=== PATIENT | female | born 1965 | race Caucasian/White ===

== ENCOUNTER 2023-09-15 09:26 | Emergency (ER) | payer MEDICARE, SELFPAY ==
--- NOTE | ~2023-09-15 | XR_ITS ---
EXAMINATION: XR RIBS, RIGHT CLINICAL INFORMATION: Right rib pain. COMPARISON: Chest radiograph dated 06/28/2017. TECHNIQUE: PA views of the chest as well as 3 views of the right ribs. FINDINGS: Minimal bibasilar atelectasis. No large, confluent airspace consolidation. No pleural effusion or pneumothorax. Stable cardiomediastinal silhouette. No displaced fracture. No concerning lytic or blastic osseous lesion. No abnormal soft tissue calcification. XR/XR ribs RT min 3V w CXR1V IMPRESSION: 1. No displaced fracture. 2. Minimal bibasilar atelectasis.
--- NOTE | ~2023-09-15 | XR_ITS ---
EXAMINATION: XR SHOULDER, RIGHT CLINICAL INFORMATION: Right shoulder pain. COMPARISON: None available. TECHNIQUE: AP external rotation, Grashey, scapular Y, and axillary views of the right shoulder. FINDINGS: The bones and soft tissues are normal. No fracture. Glenohumeral and acromioclavicular alignment is anatomic with normal joint space. No abnormal soft tissue calcifications. XR/XR shoulder RT min 2V IMPRESSION: Unremarkable examination.
--- NOTE | ~2023-09-15 | XR_ITS ---
EXAMINATION: XR CERVICAL SPINE CLINICAL INFORMATION: Neck pain radiating to the right shoulder. COMPARISON: None available. TECHNIQUE: AP, lateral, and open-mouth views of the cervical spine were obtained. FINDINGS: Normal vertebral body alignment. The cervical lordosis is maintained. Normal atlantoaxial alignment. No acute fracture or subluxation. No loss of vertebral body height. Loss of intervertebral disc height with anterior endplate osteophytes at C6-C7. Mild bilateral facet arthropathy at C3-C4. No concerning lytic or blastic osseous lesion. Unremarkable prevertebral soft tissues. No abnormal soft tissue calcification. XR/XR cervical spine 3V IMPRESSION: Moderate degenerative disc disease at C6-C7. Mild bilateral facet arthropathy at C3-C4.
[2023-09-15 09:47] VITALS: BP 143/94; PULSE 81; RESP 20; TEMP 36.7; O2SAT 94; BMI 32.3
--- NOTE | 2023-09-15 10:38 | ED.GENADULT ---
HPI - General Adult General Chief complaint: Neck Pain/Injury Stated complaint: r shoulder pain diff breathing Time Seen by Provider: 09/15/23 10:36 Source: patient Mode of arrival: ambulatory Limitations: no limitations History of Present Illness HPI narrative: 58 year old female with pmhx significant for presents to the ED today with a complaint of right-sided neck pain with radiation into the right shoulder x4 days. States her symptoms began 4 days ago with a pinched nerve in her right shoulder and associated right sided neck pain 4 days ago. The following day she woke up with pain along her right ribs and bra line. This pain is exacerbated with movement and going from a lying to seated position. Denies recent travel or long car rides, trauma/fall. Denies fever, chills, headache, dizziness, chest pain, shortness of breath, wheezing, nausea/vomiting, abdominal pain, lower extremity pain/swelling. No history of cardiac disease. Related Data Previous Rx's Medication Instructions Recorded lidocaine 5 % topical patch 1 patch topical DAILY PRN pain 09/15/23 (Lidoderm) (scale score 4-6) 15 days #15 ea Allergies Allergy/AdvReac Type Severity Reaction Status Date / Time No Known Allergies Allergy Unverified 06/19/20 19:17 Review of Systems Review of Systems: Constitutional: No fever, chills, fatigue, night sweats, weight changes ENT/Mouth: No ear pain, hearing loss, nasal congestion, sinus pain, rhinorrhea, sore throat Eyes: No eye pain, swelling, redness, vision changes, discharge Cardio: No chest pain, palpitations, BAHENA, orthopnea, peripheral edema Pulm: No SOB, cough, sputum, wheezing, dyspnea, hemoptysis GI: No nausea, vomiting, hematemesis, abdominal pain, diarrhea, constipation, hematochezia, melena : No irregular bleeding, dysuria, frequency, urgency, hesitancy, hematuria, flank pain, urinary flow changes, urinary incontinence or retention MSK: No back pain,+ neck pain, +shoulder pain, No joint pain, myalgias Skin: No lesions, rashes Neuro: No weakness, numbness, paresthesias, LOC, dizziness, headache All other systems reviewed and are negative. [facility] Past Medical History Attestation statement: The following information was validated with the patient. Source: old records reviewed and nursing notes reviewed Physical Exam ED Vital Signs: Vital Signs - 24 hr 09/15/23 09:47 09/15/23 11:14 Temperature 98.0 F Pulse Rate 81 71 Respiratory Rate 20 15 Blood Pressure 143/94 H Pulse Oximetry 94 93 Oxygen Delivery Method Room Air Room Air BMI result Body Mass Index 32.3 Vital signs stable Const General: cooperative, comfortable, no acute distress, alert and awake Orientation/consciousness: patient oriented x3 Limitations: no limitations HENMT Head: Yes normal to inspection Ears: hearing grossly normal bilaterally Eyes General: appearance normal, both eyes and all related structures Conjunctivae: conjunctivae normal Sclerae: sclerae normal Pupils: Equal, round and reactive pupils present Neck Neck: Yes normal visual inspection, Yes full ROM, Yes no lymphadenopathy and Yes no meningeal signs Chest Other: + anterior, lateral and posterior chest nontender to palpation. No step-off deformity. Chest palpation & inspection: normal inspection of the chest, normal palpation of entire chest wall, no crepitus and no tenderness Resp Effort & Inspection: normal respiratory effort, able to speak in complete sentences and symmetric chest movement Auscultation: clear to auscultation bilaterally Cardio Rate: regular rate Rhythm: regular rhythm Heart sounds: S1 normal heart sound present and S2 normal heart sound present Peripheral pulses: Peripheral pulses 2+ throughout GI Inspection: Yes normal to inspection and No abdominal wall ecchymosis Palpation (GI): Soft to palpation, nontender and no guarding General: Yes no CVA tenderness Back/Spine/Pelvis Other: No midline spinous tenderness. No paraspinal muscle tenderness. No step off deformity. Back: no CVA tenderness Skin General skin exam: no rashes or lesions noted Neuro Other: Strength 5/5 intact throughout.? Sensation intact to light touch.? Neurovascular intact distally.? General: patient oriented x3, gait normal, moves all extremities and no meningeal signs Cranial nerves: Yes CN's II-XII intact bilaterally and Yes Equal, round and reactive pupils present Extrem Other: + no overlying skin changes noted to right upper extremity. No visible or palpable deformity along the right shoulder, right humerus or right elbow. Full ROM intact to right shoulder, elbow. 2+ radial and ulnar pulses to right UE. General: Yes normal to inspection and Yes full ROM Course Course Course Narrative: 1300-- CBC without leukocytosis or anemia. Chemistry without acute electrolyte abnormality requiring intervention. Troponin undetectable. EKG showing normal sinus rhythm at a rate of 68 ppm, normal QT and QTC, no acute ischemic changes or ST elevations. X-ray right shoulder unremarkable. X-ray right ribs unremarkable. X-ray cervical spine showing degenerative changes at C6-C7, no acute fracture or subluxation. >> patient likely has a muscle strain. I informed her of her results and she states that she may have slept wrong. The area feels sore to her. Pain has improved with lidocaine patch. I feel comfortable sending patient home with lidocaine patches and pain control with Tylenol/ibuprofen. Informed her to follow up with her PCP if symptoms persist. Patient has remained stable throughout ED visit today. Discussed strict return precautions. All questions answered at this time. Patient is agreeable with disposition and stable for discharge. Medications Administered Discontinued Medications Generic Name Dose Route Start Last Admin Trade Name Martínq PRN Reason Stop Dose Admin Acetaminophen 975 mg 09/15/23 10:52 09/15/23 11:15 Acetaminophen 325 Mg Tablet PO 09/15/23 10:53 975 mg ONCE ONE Administration Lidocaine 1 patch 09/15/23 10:52 09/15/23 11:15 Lidocaine 4 % Patch Adh..Patch TRANSDERMA 09/15/23 10:53 1 patch ONCE ONE Administration Protocol Medical Decision Making Medical Decision Making [facility] Narrative: 58 year old female with pmhx significant for presents to the ED today with a complaint of right-sided neck pain with radiation into the right shoulder x4 days. Vital signs stable. Patient nontoxic appearing and in no acute distress. anterior, lateral and posterior chest nontender to palpation. No step-off deformity. no overlying skin changes noted to right upper extremity. No visible or palpable deformity along the right shoulder, right humerus or right elbow. Full ROM intact to right shoulder, elbow. 2+ radial and ulnar pulses to right UE. Clinical concern for MSK sprain/strain, fracture, cervical radiculopathy, electrolyte derangement. Unlikely arrhythmia, ACS, PE, DVT, dissection, flail chest. Plan for imaging, labs, troponin, EKG, pain control. Differential Diagnosis Differential Diagnoses: The differential diagnosis associated with the presentation includes as above. Admission/Observation not indicated. Lab Data [facility] Lab Attestation statement: I reviewed the patient's lab results. as above. 09/15/23 12:03 09/15/23 12:03 Labs: Lab Results 09/15/23 Range/Units 12:03 WBC 7.9 (4.8-10.8) X10*3/uL RBC 4.81 (4.20-5.50) X10*6/uL Hgb 14.6 (12.0-16.0) g/dl Hct 43.9 (37.0-47.0) % MCV 91.3 (80.0-98.0) fL MCH 30.4 (27.0-33.0) pg MCHC 33.3 (31.0-35.0) g/dl RDW 12.8 (11.0-16.0) % Plt Count 268 (160-400) X10*3/uL MPV 9.3 L (9.4-12.3) fL Immature Gran % (Auto) 0.3 (0.0-0.4) % Neut % (Auto) 69.8 (45-73) % Lymph % (Auto) 18.8 L (20-40) % [place] % (Auto) 10.0 (2-11) % Eos % (Auto) 0.8 (0-4) % Baso % (Auto) 0.3 (0-2) % Lymph # (Auto) 1.5 (1.2-4.9) X10*3/uL [place] # (Auto) 0.8 (0.1-1.2) X10*3/uL Eos # (Auto) 0.1 (0.0-0.4) X10*3/uL Baso # (Auto) 0.0 (0.0-0.2) X10*3/uL Abs Immat Gran (auto) 0.02 (0.00-0.03) X10*3/uL Absolute Neuts (auto) 5.5 (2.0-8.3) x10*3/uL Absolute Nucleated RBC 0.000 (0.0-0.012) X10*3/uL Nucleated RBC % (auto) 0.0 (0.0-0.2) /100WBC PT 13.5 H (11.1-13.3) SEC INR 1.1 (0.9-1.1) Sodium 140 (135-145) mmol/L Potassium 3.9 (3.3-5.1) mmol/L Chloride 105 (96-108) mmol/L Carbon Dioxide 29 (22-29) mmol/L Anion Gap 10 L (12-20) BUN 10 (9-16) mg/dL Creatinine 0.82 (0.5-1.4) mg/dL Estim Creat Clear Calc 82.7 Estimated GFR > 60 Random Glucose 102 (60-115) mg/dL Calcium 9.3 (8.4-10.2) mg/dL Magnesium 2.4 (1.6-2.6) mg/dL Troponin I High Sens < 2.7 (<3.5-17.0) ng/L Lipase 20 (8-78) U/L Independent Interpretation I performed an independent interpretation of an: EKG and Plain X-Ray Interpretation: EKG showing normal sinus rhythm with a rate of 68 beats per minute, QT of 386, no acute ischemic changes or ST elevations. X-ray cervical spine without acute fracture or subluxation, agree with radiologist's interpretation. X-ray right humerus without acute fracture or dislocation, agree with radiologist's interpretation. X-ray ribs without acute fracture, agree with radiologist's interpretation. Radiology Impression Discussion of test interpretation with radiology: I have reviewed the radiologist's reading. Radiologist Impression: XR cervical spine 3V IMPRESSION: Moderate degenerative disc disease at C6-C7. Mild bilateral facet arthropathy at C3-C4. XR ribs RT min 3V w CXR1V IMPRESSION: 1. No displaced fracture. 2. Minimal bibasilar atelectasis. XR shoulder RT min 2V IMPRESSION: Unremarkable examination. External Record Review External record reviewed: Inpatient record Prescription Management I considered prescription management with: Pain Medication and Other Critical Care Time Critical Care Time Critical Care Time: No Discharge Plan Discharge Clinical Impression: Rib pain on right side Patient Disposition: Home, Self-Care Instructions: Musculoskeletal Pain (ED) Additional Instructions: Your labs today were normal. Your EKG was normal. The x-ray of your right shoulder, ribs and neck do not demonstrate acute fracture or pathology. Your pain is likely musculoskeletal. Avoid bending, lifting, or twisting. Use ice several times per day for 20 minutes at a time for the next 48 hours and then change to heat. Take anti-inflammatories at home such as ibuprofen for pain. You may also take Tylenol. Lidoderm patches are numbing patches. Apply to painful areas. Follow up with your primary care provider as needed If your pain worsens, if you develop new numbness, tingling, weakness, loss of bowel or bladder function call 911 or return to the ER immediately for evaluation. Prescriptions: New lidocaine [Lidoderm] 5 % adhesive patch,medicated 1 patch topical DAILY PRN (Reason: pain (scale score 4-6)) 15 Days Qty: 15 0RF Rx Instructions: leave on most painful area for up to 12 hrs Referrals: Devang Rhodes MD [Primary Care Provider] - Interventions: ED Discharge Assessment Last Done: 09/15/23 13:20 Discharge Date/Time: 09/15/23 13:21
[2023-09-15 11:14] VITALS: PULSE 71; RESP 15; O2SAT 93
[2023-09-15] MEDS: Lidocaine 4 % Patch ADH..PATCH 1 PATCH TRANSDERMA (11:15)
[2023-09-15] MEDS: Acetaminophen 325 MG TABLET 975 MG PO (11:15)
--- NOTE | 2023-09-15 11:41 | ECG_ITS ---
Test Reason : SHORT OF BREATHE Blood Pressure : / mmHG Vent. Rate : 068 BPM Atrial Rate : 068 BPM P-R Int : 148 ms QRS Dur : 086 ms QT Int : 386 ms P-R-T Axes : 046 -08 006 degrees QTc Int : 410 ms Normal sinus rhythm Minimal voltage criteria for LVH, may be normal variant ( R in aVL ) Cannot rule out Anterior infarct , age undetermined Abnormal ECG No previous ECGs available Referred By: Katie Cummings Electronically Signed By:Fidencio Casillas
[2023-09-15 12:08] LABS: MANUAL DIFF FLAG NO
[2023-09-15 12:10] LABS: Basophils Percent Auto 0.3 % (0-2); Eosinophils Absolute Auto 0.1 X10*3/uL (0.0-0.4); Eosinophils Percent Auto 0.8 % (0-4); Hematocrit 43.9 % (37.0-47.0); Hemoglobin 14.6 g/dl (12.0-16.0); Imm Gran Abs Auto 0.02 X10*3/uL (0.00-0.03); Imm Gran Pct Auto 0.3 % (0.0-0.4); Lymphocytes Absolute Auto 1.5 X10*3/uL (1.2-4.9); Lymphocytes Percent Auto 18.8 % (20-40); Mean Corpuscular HGB Conc 33.3 g/dl (31.0-35.0); Mean Corpuscular Hemoglobin 30.4 pg (27.0-33.0); Mean Corpuscular Volume 91.3 fL (80.0-98.0); Mean Platelet Volume 9.3 fL (9.4-12.3); Monocytes Absolute Auto 0.8 X10*3/uL (0.1-1.2); Neutrophils Absolute Auto 5.5 x10*3/uL (2.0-8.3); Neutrophils Percent Auto 69.8 % (45-73); Platelet Count 268 X10*3/uL (160-400); Red Blood Count 4.81 X10*6/uL (4.20-5.50); Red Cell Distribution Width 12.8 % (11.0-16.0); White Blood Count 7.9 X10*3/uL (4.8-10.8)
[2023-09-15 12:14] LABS: INTERNATIONAL NORM RATIO 1.1 (0.9-1.1); Prothrombin Time 13.5 SEC (11.1-13.3)
[2023-09-15 12:33] LABS: Anion Gap 10 (12-20); Blood Urea Nitrogen 10 mg/dL (9-16); Calcium 9.3 mg/dL (8.4-10.2); Carbon Dioxide 29 mmol/L (22-29); Chloride 105 mmol/L (96-108); Creatinine Clr Calc Pharmacy 82.7; Estimated Glomerular Filt Rate > 60; Glucose Random 102 mg/dL (60-115); Lipase 20 U/L (8-78); Magnesium 2.4 mg/dL (1.6-2.6); Potassium 3.9 mmol/L (3.3-5.1); Sodium 140 mmol/L (135-145)
[2023-09-15 12:39] LABS: Troponin-I High Sensitivity < 2.7 ng/L (<3.5-17.0)
== END 2023-09-15 13:21 | disposition home or self-care (01) ==
PROVIDERS: Physician Assistant Medical; Emergency Provider Student in an Organized Health Care Education/Training Program; PCP Internal Medicine
DX: R07.81 Pleurodynia (principal); M54.2 Cervicalgia; M25.511 Pain in right shoulder; R51.9 Headache, unspecified; R07.89 Other chest pain; Z79.899 Other long term (current) drug therapy
CPT/HCPCS: 36415; 71101; 72040; 73030; 80048; 83690; 83735; 84484; 85025; 85610; 93005; 99284; 99285

== ENCOUNTER → 2023-09-15 11:41 | Outpatient (BNV) | payer MEDICARE, SELFPAY | PROVIDERS: Emergency Provider Student in an Organized Health Care Education/Training Program; PCP Internal Medicine; Visit Provider Internal Medicine Cardiovascular Disease | DX: R94.31 Abnormal electrocardiogram [ECG] [EKG] (principal); R06.02 Shortness of breath | CPT/HCPCS: 93010 ==

== ENCOUNTER 2025-05-07 11:04 | Outpatient (AMB) | payer MEDICARE, SELFPAY ==
--- NOTE | 2025-05-07 11:05 | A.OFFVIS_ITS ---
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 She had an EMG nerve conduction study in 2017 that revealed mild peripheral neuropathy affecting sensory nerves. She has been treated symptomatically with gabapentin. She was complaining of increasing weakness and inability to climb stairs. [facility] Medical History (Updated 05/07/25 @ 11:[address] MD) Obesity Vitamin D deficiency Peripheral neuropathy Review of Systems Const Details: Constitutional:?No fever, chills, fatigue, weight loss, or night sweats. HEENT:?No headache, vision changes, hearing loss, nasal congestion, sore throat. Neurological:?No dizziness, syncope, seizures, numbness, tingling, weakness, tremors, memory loss. Psychiatric:?No anxiety, depression, mood swings, sleep disturbance, or hallucinations. Endocrine:?No heat/cold intolerance, polydipsia, polyuria, or hair/skin changes. Hematologic/Lymphatic:?No easy bruising, bleeding, or lymphadenopathy. Integumentary (Skin):?No rash, lesions, itching, or color changes. ? Physical Exam Neuro Other: Mental Status: Alert and oriented to person, place, and time. Normal attention. Normal spontaneous speech, fluency, and comprehension. No obvious issues with mood and memory. Affect is appropriate. Cranial Nerves: CN II: Visual johnston full to confrontation, visual acuity intact. CN III, IV, : Pupils equal, round, reactive to light and accommodation. Extraocular movements are normal. CN V: Facial sensation is normal. CN VII: Facial movements symmetrical. CN VIII: Hearing intact to bedside conversation is normal. CN IX, X: Palate elevates symmetrically. CN XI: Shoulder shrug and head turn symmetrical. CN XII: Tongue midline without atrophy or fasciculations. Deep tendon reflexes are trace to absent. She is able to get up and walk around with no obvious significant difficulty. Extrapyramidal: Full facial expressions and blinking. No rigidity. Movements are appropriate with no tremor or abnormality. Speech: Normal; no dysarthria or tremor. Assessment & Plan Assessment & Plan (1) Neuropathic pain: Code(s): M79.2 - Neuralgia and neuritis, unspecified Category: Medical (2) Peripheral neuropathy: Comment: NCV/EMG LE 07/04/17 Mild peripheral neuropathy affecting sensory nerves. Code(s): G62.9 - Polyneuropathy, unspecified Category: Medical Qualifiers: Peripheral neuropathy type: polyneuropathy, unspecified Qualified Code(s): G62.9 - Polyneuropathy, unspecified Plan Impression: 1. Neuropathic pain affecting feet secondary to peripheral neuropathy 2. 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 Gabapentin 400 mg 1-2 at night for symptomatic relief 2. Comfortable shoes 3. Avoid prolonged standing and walking 4. EMG/NCS for reevaluation, last study was done in 2017, as she was having more symptoms Orders: Orders NE nerve conduction velocity Today G62.9 - Polyneuropathy, unspecified NE electromyogram (EMG) Today G62.9 - Polyneuropathy, unspecified Medications: New gabapentin 400 mg PO .1-2 at bedtime 200 caps 1RF Coding Level of Care Code Est Pt Level 4 (23192) Diagnoses Neuropathic pain M79.2 Peripheral polyneuropathy G62.9 Peripheral neuropathy type: polyneuropathy, unspecified
--- OUTSIDE RECORDS SUMMARY | 2025-05-07 11:52 | XMS_ITS | Clinical Summary ---
Author Organization [place] [address] [facility] Building Address [address] [place], [place] [address], [place] [address] Phone Care Team Providers Care Rfid Specialist Name Role Phone Devang Rhodes MD Primary Care Provider [phone] [phone] Allergies No known active allergies Medications gabapentin (NEURONTIN) 400 mg capsule Take 1 Capsule by mouth at bedtime. Active meclizine (ANTIVERT) 12.5 mg tabletIndicati ons:Vertigo Take 1 tablet (12.5 mg total) by mouth 3 (three) times a day if needed for dizziness. 30 tablet 4 Active omeprazole (PriLOSEC) [address] capsule TAKE ONE CAPSULE BY MOUTH EVERY DAY 30 capsule 3 4 Active cyanocobalamin (VITAMIN B-12) 1,000 mcg tablet Take 1 tablet (1,000 mcg total) by mouth 1 (one) time each day. 90 each 5 12/14/19 26 Active Vitamin D3 50 mcg (2,000 unit) capsule TAKE ONE CAPSULE BY MOUTH EVERY DAY 90 capsule 5 Active Vitamin D3 50 mcg (2,000 unit) capsule TAKE ONE CAPSULE BY MOUTH EVERY DAY 90 capsule 1 5 04/29/20 25 Discontinued Active Problems Problem Noted Date Diagnosed Date Carpal tunnel syndrome on both sides 07/31/2024 Overview (07/31/2024): During ~ 1998 Renal cyst 02/15/2024 Overview (07/31/2024): 0.8 cm Cervical high risk HPV (human papillomavirus) te st positive 03/31/2023 Overview (07/31/2024): 2022 neg, cytology nml Repeat pap 2023 Abnormal TSH 10/12/2018 Pulmonary nodule 05/29/2018 Overview (07/31/2024): LD CT lung (05/29/2019): Persistent 3-4 mm pulmonary nodule within the right upper lobe. No suspicious pulmonary nodule identified. Repeat in 12 months. LDCT lung (05/26/18): 3 mm non calcified within the right upper lobe Peripheral neuropathy 07/27/2017 Overview (07/31/2024): Neurology (03/01/18): Seen for peripheral neuropathy. Continue gabapentin 100 mg 2 in the morning and noon and 3 at night. Continue vitamin D 2079 for vitamin D deficiency. Follow-up in one year. Seen by Dr. Lane Neurology (07/25/17): Start gabapentin 100 mg, 2 in the AM and noon and 3 at night. For vitamin D deficiency, vitamin D tablet 2000 units, one tablet daily ordered. EMG lower extremity done on 07/04/17 showed mild peripheral neuropathy affecting sensory nerves Microhematuria 12/24/2016 Overview (07/31/2024): urology (12/24/16): CT urogram negative, cytology negative, set endoscopy negative, reassurance given for hematuria Anxiety state 06/07/2006 Irritable bowel syndrome 06/07/2006 Immunizations Name Administration Dates Next Due Influenza Quadravalent, MDCK , 0.5ml, with preservative (Flucelvax) 6mo and older 10/12/2018,09/15/2017 Influenza trivalent, 0.5mL, preservative free (Fluarix; FluLaval; Fluzone) ages 6mo and older (Afluria) 3 years and older 10/13/2016 PPD Test 07/22/2009 Pneumococcal polysaccharide 23 valent (Pneumovax 23) 2yo and older 12/23/2011 Tdap Tetanus diptheria acell ular pertussis (Boostrix; Adacel) 7yo and older 12/23/2011 Surgical History Surgery Date Site/Laterality Comments BREAST BIOPSY + years Left PROCEDURE: BX BREAST; PERC NEEDLE CORE W/IMAG GUID; COMMENT: more than years ago per patient TUBAL LIGATION 1998 PROCEDURE: HISTORICAL TUBAL LIGATION Medical History Medical History Date Comments Carpal tunnel syndrome on both sides DX:Carpal tunnel syndrome on both sides Cubital tunnel syndrome left DX:Cubit al tunnel syndrome Renal cyst 02/15/2024 DX:Renal cyst; C OMMENT: 0.8 cm Family History Medical History Relation Name Comments Leukemia Brother Lung cancer Father Arthritis Mother Diabetes Mother ovarian cancer, HTN, obesity Leukemia Son obesity Breast cancer Neg Hx Relation Name Status Comments Brother Alive no contact Father lung cancer - s moker Mother Alive HTN, ovarian ca ncer Sister 1 Alive Sister 2 Alive no contact Son Social History Tobacco Use Types Packs/Day Years Used Date Smoking Tobacco: Former Cigarettes Q uit: 10/18/2016 Smokeless Tobacco: Never Tobacco Cessation:Counseling Given: Not Answered Alcohol Use Standard Drinks/Week Comments No 0 (1 standard drink = 0.6 oz pur e alcohol) Comments No Sex and Gender Information Value Date Recorded Sex Assigned at Not on file Legal Sex Female 2:06 PM EST Gender Identity Not on file Sexual Orientation Not on file Obstetrics History Last Filed Vital Signs Vital Sign Reading Time Taken Comments Blood Pressure 138/90 12/13/2024 10:28 AM EDT Pulse 64 12/13/2024 10:28 AM EDT Temperature 36.4 C (97.6 F) 12/13/2024 10:28 AM EDT Respiratory Rate - - Oxygen Saturation 98% 12/13/2024 10:28 AM EDT Inhaled Oxygen Concentration - - Weight 69.9 kg (154 lb) 12/13/2024 10:28 AM EDT Height 167.6 cm (5' 6 ) 12/13/2024 10:28 AM EDT Body Mass Index 24.86 12/13/2024 10:28 AM EDT Plan of Treatment Upcoming Encounters Date Type Department Care Team (Late st Contact Info) Description 05/22/2025 3:00 PM EDT Office Visit [facility] [address] [place] [address] Desiree Aquino, [employer] [address] [place] [address] Health Maintenance Due Date Last Done Comments Pneumococcal Vaccine: 50+ Years (2 of 2 - PCV) 2013 12/23/2011, 12/23/2011 Zoster Vaccines (1 of 2) 2013 DTaP,Tdap,and Td Vaccines (2 - Td or Tdap) 12/22/2021 12/23/2011 Colorectal Cancer Screening: Colonoscopy 09/11/2022 Medicare Annual Wellness Visit 09/11/2022 Social Influencers of Health Screening 09/11/2022 COVID-19 Vaccine ( season) 2024 Depression Screening 10/03/2024 Lung Cancer Screening (Low Dose CT) 12/27/2024 12/28/2023, 12/29/2022 Breast Cancer Screening 03/24/2025 03/24/20 23, 03/23/2022, 03/17/2021, Additional history exists Influenza Vaccine (#1) 2025 9, 09/15/2017, 10/13/2016, Additional history exists Cervical Cancer Screening: HPV 03/22/2028 03/22/2023 Cholesterol Screening (Lipid Panel) 01/17/2029 01/18/2024 RSV Immunization Adult Patients (1 - 1-dose 75+ series) 2038 HIV Screening Completed 05/18/2018 Hepatitis C Screening Completed 05/18/2018 HIB Vaccines Aged Out No longer eligi ble based on patient's age to complete this topic HPV Vaccines Aged Out No longer eligi ble based on patient's age to complete this topic Hepatitis A Vaccines Aged Out No long er eligible based on patient's age to complete this topic Hepatitis B Vaccines Aged Out No long er eligible based on patient's age to complete this topic IPV Vaccines Aged Out No longer eligi ble based on patient's age to complete this topic MMR Vaccines Aged Out No longer eligi ble based on patient's age to complete this topic Meningococcal ACWY Vaccine Aged Out N o longer eligible based on patient's age to complete this topic Meningococcal B Vaccine Aged Out No l onger eligible based on patient's age to complete this topic RSV Immunization Patients Under 20 months Aged Out No longer eligible based on patient's age to complete this topic Varicella Vaccines Aged Out No longer eligible based on patient's age to complete this topic Procedures Procedure Name Priority Date/Time Associated Diagnosis Comments LIPID PANEL Routine 01/18/2024 CT LUNG SCREENING LOW DOSE Routine 12/28/2023 4:45 PM EDT Encounter for screening for malignant neoplasm of respiratory organs SCREENING MAMMOGRAPHY BI 2-VIEW BREAST INC CAD Routine 03/24/2023 8:38 AM EDT Encounter for screening mammogram for malignant neoplasm of breast HM HPV Routine 03/22/2023 HEPATITIS C SCREENING Routine 05/18/2018 HIV SCREENING Routine 05/18/2018 from Last 3 Months or Most Recently Relevant to Health Maintenance Results * (ABNORMAL) Lipid panel (01/18/2024) LDL/HDL Ratio 3 0 - 4 Triglycerides 70 0 - 150 mg/dL Cholesterol 184 0 - 200 mg/dL HDL 67 >=40 mg/dL LDL Cholesterol 103(A) 0 - 100 mg/dL Blood Venous blood specimen / Unknown Historical Provider LAB BLOOD ORDERABLES Nicole l Result * CT LUNG SCREENING LOW DOSE (12/28/2023 4:45 PM EDT) Anatomical Region Laterality Modality Computed Tomogra phy 12/28/2023 10:3 6 AM EDT Narrative 12/28/2023 4:45 PM EDT [facility] Diagnostic Imaging Department [address] [place] [id number] Patient: QUITA ISIDRO /Age/Sex: 1965 - 58 - F Unit#: [id number] Location/Status: SPDICATLS/REG CLI Mnemonic/Ordering Site: [facility] Ordering Physician: ERIN PARKS MD CT Lung Screening Low Dose - 12/28/23 - Report Status:Signed History: 58 year-old 40 pack-year former smoker, asymptomatic, for lung cancer screening. Quit smoking 8 years ago, emphysema Comparison: 12/21/2022 and 05/29/2019 Technique: Helical volumetric imaging of the thorax was performed, using low- dose technique, without IV contrast. DLP: 163.77 mGy/cm CTDIvol: 4.89 mGy Kybernesis VCT Iterative reconstruction technique Findings: Chest: There is no evidence for mediastinal or hilar adenopathy. The heart size is normal. There is no pericardial or pleural effusion. There is chronic obstructive pulmonary disease with emphysematous change. Again noted is a 4 mm nodule right middle lobe image 100 series 3 stable and unchanged since 2019. There is also a calcified granuloma in the right middle lobe and left lower lobe. The lungs are otherwise clear. There is no new nodule mass or infiltrate. Abdomen: This study was performed without contrast and with lower than standard dose. These factors reduce the sensitivity for detection of small lesions in the upper abdomen. Limited views the upper abdomen are unremarkable. Impression: Chronic obstructive pulmonary disease with emphysematous change and is stable Stable benign-appearing nodules some of which are calcified. No evidence for developing nodule, mass or infiltrate. Lung RADS 2: Benign Appearance or Behavior - Continue annual screening with LDCT in 12 months. [id number] [id number] [id number] [id number] Dictating Physician: WANDA LECHUGA MD Electronically Signed by: WANDA LECHUGA MD Dic Date/Time: 12/28/23 1640 Sign date/Time: 12/28/23 1645 Procedure Note Wanda Altman MD - 05/21/2024 [facility] Diagnostic Imaging Department [address] [place] [address] [id number] Patient: QUITA ISIDRO Yue SilvaB./Age/Sex: 1965 - 58 - F Unit#: [id number] Location/Status: SPDICATLS/REG CLI Mnemonic/Ordering Site: [facility] Ordering Physician: ERIN PARKS MD CT Lung Screening Low Dose - 12/28/23 - Report Status:Signed History: 58 year-old 40 pack-year former smoker, asymptomatic, for lungcancer screening. Quit smoking 8 years ago, emphysema Comparison: 12/21/2022 and 05/29/2019 Technique: Helical volumetric imaging of the thorax was performed, usinglow- dose technique, without IV contrast. DLP: 163.77 mGy/cm CTDIvol: 4.89 mGy Kybernesis VCT Iterative reconstruction technique Findings: Chest: There is no evidence for mediastinal or hilar adenopathy. Theheart size is normal. There is no pericardial or pleural effusion. There is chronic obstructive pulmonary disease with emphysematouschange. Again noted is a 4 mm nodule right middle lobe image 100 series 3 stableand unchanged since 2019. There is also a calcified granuloma in the rightmiddle lobe and left lower lobe. The lungs are otherwise clear. There is nonew nodule mass or infiltrate. Abdomen: This study was performed without contrast and with lower thanstandard dose. These factors reduce the sensitivity for detection of small lesionsin the upper abdomen. Limited views the upper abdomen are unremarkable. Impression: Chronic obstructive pulmonary disease with emphysematous change and isstable Stable benign-appearing nodules some of which are calcified. No evidencefor developing nodule, mass or infiltrate. Lung RADS 2: Benign Appearance or Behavior - Continue annual screeningwith LDCT in 12 months. [id number] [id number] [id number] [id number] Dictating Physician: WANDA LECHUGA MD Electronically Signed by: WANDA LECHUGA MD Dic Date/Time: 12/28/23 1640 Sign date/Time: 12/28/23 [id number] us Erin Parks MD IMG CT PROCEDURES Final Result * SCREENING MAMMOGRAPHY BI 2-VIEW BREAST INC CAD (03/24/2023 8:38 AM EDT) Anatomical Region Laterality Modality Radiographic Cally ging 03/23/2022 3:42 PM EDT Narrative 03/24/2023 9:59 AM EDT This is a summary report. The complete report is available in the patient's medical record. If you cannot access the medical record, please contact the sending organization for a detailed fax or copy. Full field digital screening tomosynthesis mammography, reviewed with CAD and compared to previous. The breasts are composed of fatty and fibroglandular tissue. No suspicious mass, architectural distortion or suspicious calcifications are identified. IMPRESSION: : No mammographic evidence of malignancy. BIRADS 1-Negative; N. 5 year breast cancer risk assessment 1.4 % Lifetime breast cancer risk assessment 7.1 % Breast cancer risk category Low (<15%) Procedure Note Rashad Posada MD - 11/08/2023 This is a summary report. The complete report is available in thepatient's medical record. If you cannot access the medical record, pleasecontact the sending organization for a detailed fax or copy. Full field digital screening tomosynthesis mammography, reviewed with CADand compared to previous. The breasts are composed of fatty andfibroglandular tissue. No suspicious mass, architectural distortion orsuspicious calcifications are identified. IMPRESSION: : No mammographic evidence of malignancy. BIRADS 1-Negative; N. 5 year breast cancer risk assessment 1.4 % Lifetime breast cancer risk assessment 7.1 % Breast cancer risk category Low (<15%) Jessenia Cox DO IMG XR PROCEDURES Final Resul t * Cervical Cancer Screening: HPV (03/22/2023) [facility] Cervical Cancer Screening: HPV Positive, Abstracted Result [facility] Historical Provider HEALTH MAINTENANCE Final Result * HIV Screening (05/18/2018) [facility] HIV Screening Abstracted Historical Provider HEALTH MAINTENANCE Final Result * Hepatitis C Screening (05/18/2018) [facility] Hepatitis C Screening Abstracted Result [facility] Historical Provider HEALTH MAINTENANCE Final Result from Last 3 Months or Most Recently Relevant to Health Maintenance Insurance [employer] MEDICARE ADVANTAGE on file MEDICARE Care Teams Rfid Specialist Relationship Specialty Start Date End Date Devang Rhodes MD [address] [place] [id number] PCP - General Internal Medicine 09/15/16
== END 2025-05-07 11:21 | disposition home or self-care (01) ==
LOC: HO.HSM 11:04
PROVIDERS: PCP Internal Medicine; Referring Provider Internal Medicine; Visit Provider Psychiatry & Neurology Neurology
DX: M79.2 Neuralgia and neuritis, unspecified (principal); G62.9 Polyneuropathy, unspecified
CPT/HCPCS: 99214

== ENCOUNTER → 2025-05-07 11:04 | Outpatient (BNVA) | payer MEDICARE, SELFPAY | PROVIDERS: PCP Internal Medicine; Referring Provider Internal Medicine; Visit Provider Psychiatry & Neurology Neurology | DX: R53.1 Weakness (principal); G62.9 Polyneuropathy, unspecified | CPT/HCPCS: 99212 ==

== ENCOUNTER 2025-05-21 10:32 | Outpatient (REF) | payer MEDICARE, SELFPAY ==
--- NOTE | 2025-05-21 11:09 | EMG_ITS ---
Bilateral tibial and peroneal motor studies were performed. Bilateral superficial peroneal and sural sensory studies were performed. Bilateral H reflexes were obtained. EMG needle examination was performed. Impression: This study is mostly unremarkable except left sural and superficial peroneal sensory responses were absent. MTDD
--- OUTSIDE RECORDS SUMMARY | 2025-05-21 11:57 | XMS_ITS | Clinical Summary ---
Author Organization [place] [address] [facility] Building Address [address] [place], [place] [address], [place] [address] Phone Care Team Providers Care Body Cleaner Name Role Phone Devang Rhodes MD Primary Care Provider [phone] Allergies No known active allergies Medications gabapentin [...] Visit Internal Medicine - [facility] [address] [place] [address] Desiree Aquino, FLUID DESIGNER [address] [place] [address] Health Maintenance Due Date Last Done Comments [...] AM EDT Narrative 12/28/2023 4:45 PM EDT [facility] Diagnostic Imaging Department [address] [place] [address] Patient: QUITA ISIDRO /Age/Sex: 1965 - 58 - F Unit#: [id number] Location/Status: SPDICATLS/REG CLI Mnemonic/Ordering Site: [facility] Ordering Physician: ERIN PARKS MD CT Lung Screening Low Dose - 12/28/23 - Report Status:Signed History: 58 year-old 40 pack-year former smoker, asymptomatic, for lung cancer screening. Quit smoking 8 years ago, emphysema Comparison: 12/21/2022 and 05/29/2019 Technique: Helical volumetric imaging of the thorax was performed, using low- dose technique, without IV contrast. DLP: 163.77 mGy/cm CTDIvol: 4.89 mGy neoSaej VCT Iterative reconstruction technique Findings: Chest: There [...] annual screening with LDCT in 12 months. [id number] [id number] [id number] G9551 Dictating Physician: WANDA LECHUGA MD Electronically Signed by: WANDA LECHUGA MD Dic Date/Time: 12/28/23 1640 Sign date/Time: 12/28/23 1645 Procedure Note Wanda Altman MD - 05/21/2024 [facility] Diagnostic Imaging Department [address] [place] [address] [id number] Patient: QUITA ISIDRO Yue SilvaB./Age/Sex: 1965 - 58 - F Unit#: [id number] Location/Status: SPDICATLS/REG CLI Mnemonic/Ordering Site: [facility] Ordering Physician: ERIN PARKS MD CT Lung Screening Low Dose - 12/28/23 - Report Status:Signed History: 58 year-old 40 pack-year former smoker, asymptomatic, for lungcancer screening. Quit smoking 8 years ago, emphysema Comparison: 12/21/2022 and 05/29/2019 Technique: Helical volumetric imaging of the thorax was performed, usinglow- dose technique, without IV contrast. DLP: 163.77 mGy/cm CTDIvol: 4.89 mGy neoSaej VCT Iterative reconstruction technique Findings: Chest: There [...] Continue annual screeningwith LDCT in 12 months. [id number] [id number] [id number] G9551 Dictating Physician: WANDA LECHUGA MD Electronically Signed by: WANDA LECHUGA MD Dic Date/Time: 12/28/23 1640 Sign date/Time: 12/28/23 3818 us Erin Parks MD IMG CT PROCEDURES [...] t * Cervical Cancer Screening: HPV (03/22/2023) [facility] Cervical Cancer Screening: HPV Positive, Abstracted Result [facility] Historical Provider HEALTH MAINTENANCE Final Result * HIV Screening (05/18/2018) [facility] HIV Screening Abstracted Historical Provider HEALTH MAINTENANCE Final Result * Hepatitis C Screening (05/18/2018) [facility] Hepatitis C Screening Abstracted Result [facility] Historical Provider HEALTH MAINTENANCE Final Result from Last 3 Months or Most Recently Relevant to Health Maintenance Insurance [employer] MEDICARE ADVANTAGE on file MEDICARE Care Teams Body Cleaner Relationship Specialty Start Date End Date Devang Rhodes MD [address] [place] [id number] PCP - General Internal Medicine 09/15/16
== END 2025-05-21 10:33 | disposition home or self-care (01) ==
LOC: HO.NEURO 10:32
PROVIDERS: PCP Internal Medicine; Visit Provider Psychiatry & Neurology Neurology
DX: G62.9 Polyneuropathy, unspecified (principal)
CPT/HCPCS: 95886; 95911

== ENCOUNTER → 2025-05-21 11:09 | Outpatient (BNV) | payer MEDICARE, SELFPAY | PROVIDERS: PCP Internal Medicine; Visit Provider Psychiatry & Neurology Neurology | DX: G62.89 Other specified polyneuropathies (principal) | CPT/HCPCS: 95886; 95911 ==

== ENCOUNTER 2025-06-11 11:58 | Outpatient (AMB) | payer MEDICARE, SELFPAY ==
--- NOTE | 2025-06-11 12:06 | A.OFFVIS_ITS ---
Intake Visit Reasons: RESULTS Allergies No Known Allergies Allergy (Unverified 06/19/20 19:17) HPI Comments Details: 60 years old woman with chronic bilateral pain in feet with burning character likely cause by axonal peripheral neuropathy of unknown cause. She had an EMG nerve conduction study in 2017 that revealed mild peripheral neuropathy affecting sensory nerves. She has been treated symptomatically with gabapentin. She was complaining of increasing weakness and inability to climb stairs. She is presenting with sensory neuropathy and muscle weakness. She reports intermittent sensory discomfort managed with medication and noted mild sensory n europathy from recent conduction studies. Muscle weakness, most noticeable when climbing stairs, has developed progressively and reflects age-related changes. There are no underlying traumatic or acute events exacerbating these issues. [facility] Medical History (Updated 06/11/25 @ 12:[address] MD) Obesity Vitamin D deficiency Peripheral neuropathy Review of Systems Const Details: - Neurological: Reports sensory discomfort managed occasionally with medication; denies significant changes since the last conduction study in 2017. - Musculoskeletal: Reports muscle weakness particularly when climbing stairs; does not report any specific recent muscle trauma or injury. Assessment & Plan Assessment & Plan (1) Peripheral neuropathy: Comment: EMG/NCS LEs at [facility] in 2024: Mild PN with absent left sural and sup peroneal NCV/EMG LE 07/04/17 Mild peripheral neuropathy affecting sensory nerves. Code(s): G62.9 - Polyneuropathy, unspecified Category: Medical Qualifiers: Peripheral neuropathy type: polyneuropathy, unspecified Qualified Code(s): G62.9 - Polyneuropathy, unspecified Plan: I discussed with the patient the ongoing management of her sensory neuropathy with Gabapentin, including occasional dose adjustments to help manage symptoms at night. We also talked about maintaining muscle strength through exercise, especially given the age-related decline she?s experiencing. I advised her to remain active and to engage in a regular exercise regimen to help improve her muscle function and prevent further weakness. A follow-up was agreed upon in six months to reassess her condition and adjust her management plan as necessary. (2) Neuropathic pain: Code(s): M79.2 - Neuralgia and neuritis, unspecified Category: Medical (3) Small fiber neuropathy: Code(s): G62.9 - Polyneuropathy, unspecified Category: Medical Plan Impression: a: Neuropathic pain affecting legs and feet b: Mild sensory nerve abnormalities on EMG/NCS suggesting that pathology might be mostly of small fiber type Rec: a: Gabapentin 400mg 1-2 at night. b: Stay active Coding Level of Care Code Est Pt Level 4 (51984) Diagnoses Peripheral polyneuropathy G62.9 Peripheral neuropathy type: polyneuropathy, unspecified Neuropathic pain M79.2 Small fiber neuropathy G62.9
--- OUTSIDE RECORDS SUMMARY | 2025-06-11 14:29 | XMS_ITS | Clinical Summary ---
Author Organization [place] [id number] [facility] Building Address [address] [place], [place] [address], [place] [address] Phone Care Team Providers Care Key Cutter Name Role Phone Devang Rhodes MD Primary Care Provider [phone] Allergies No known active allergies Medications gabapentin (NEURONTIN) 400 mg capsule Take 1 Capsule by mouth at bedtime. Active cyanocobalamin (VITAMIN B-12) 1,000 mcg tablet Take 1 tablet (1,000 mcg total) by mouth 1 (one) time each day. 90 each 5 12/14/19 26 Active Vitamin D3 50 mcg (2,000 unit) capsule TAKE ONE CAPSULE BY MOUTH EVERY DAY 90 capsule 5 Active clotrimazole (LOTRIMIN) 1 % cream Apply topically 1 (one) time each day. 30 g 3 5 Active omeprazole (PriLOSEC) [address] capsule Take 1 capsule (40 mg total) by mouth 2 (two) times a day. Do not crush or chew. 30 capsule 3 5 Active meclizine (ANTIVERT) 12.5 mg tabletIndicatio ns:Vertigo Take 1 tablet (12.5 mg total) by mouth 3 (three) times a day if needed for dizziness. 30 tablet 4 05/22/20 25 Discontinu ed(Therapy completed) omeprazole (PriLOSEC) [address] capsule TAKE ONE CAPSULE BY MOUTH EVERY DAY 30 capsule 3 4 05/22/20 25 Discontinu ed(Reorder ) clotrimazole (LOTRIMIN) 1 % cream 1 (one) time each day. 05/22/20 25 Discontinu ed(Reorder ) Active Problems Problem Noted Date Diagnosed Date Carpal tunnel syndrome on both sides 07/31/2024 Overview (07/31/2024): During ~ 1998 Renal cyst 02/15/2024 Overview (07/31/2024): 0.8 cm Abnormal TSH 10/12/2018 Pulmonary nodule 05/29/2018 Overview [...] showed mild peripheral neuropathy affecting sensory nerves Irritable bowel syndrome 06/07/2006 Resolved Problems Problem Noted Date Diagnosed Date Resolved Date Cervical high risk HPV (claudette n papillomavirus) test positive 03/31/2023 05/22/2025 Overview (07/31/2024): 2022 neg, cytology nml Repeat pap 2023 Microhematuria 12/24/2016 05/22/2025 Overview (07/31/2024): urology (12/24/16): CT urogram negative, cytology negative, set endoscopy negative, reassurance given for hematuria Anxiety state 06/07/2006 05/22/2025 Encounters Date Type Department Care Team Description 05/22/2025 3:00 PM EDT [facility] [address] [place] [phone] Desiree Aquino, MAC Other polyneuropathy (Primary Dx); Carpal tunnel syndrome on both sides; Pulmonary nodule; Irritable bowel syndrome, unspecified type; Renal cyst; Vitamin B deficiency; Blood glucose elevated; Moderate mixed hyperlipidemia not requiring statin therapy from Last 3 Months Immunizations Name Administration Dates Next Due Influenza [...] Sign Reading Time Taken Comments Blood Pressure 123/85 05/22/2025 2:40 PM EDT aut o cuff Pulse 76 05/22/2025 2:40 PM EDT auto cuff Temperature 36.4 C (97.6 F) 05/22/2025 2:40 PM EDT Respiratory Rate - - Oxygen Saturation 98% 12/13/2024 10:28 AM EDT Inhaled Oxygen Concentration - - Weight 69.4 kg (153 lb) 05/22/2025 2:40 PM EDT Height 167.6 cm (5' 6 ) 12/13/2024 10:28 AM EDT Body Mass Index 24.69 12/13/2024 10:28 AM EDT Plan of Treatment Upcoming Encounters Date Type Department Care Team (Late st Contact Info) Description 11/22/2025 10:30 AM EST Office Visit Internal Medicine - [address] [phone] Desiree Aquino, MAC [address] [place] [id number] Health Maintenance Due Date Last Done Comments Pneumococcal Vaccine: 50+ Years (2 of 2 - PCV) 2013 12/23/2011, 12/23/2011 Zoster Vaccines (1 of 2) 2013 DTaP,Tdap,and Td Vaccines (2 - Td or Tdap) 12/22/2021 12/23/2011 Colorectal Cancer Screening: Colonoscopy 09/11/2022 Medicare Annual Wellness Visit 09/11/2022 Social Influencers of Health Screening 09/11/2022 Depression Screening 10/03/2024 Lung Cancer Screening (Low Dose CT) 12/27/2024 12/28/2023, 12/29/2022 Breast Cancer Screening 03/24/2025 03/24/20 23, 03/23/2022, 03/17/2021, Additional history exists COVID-19 Vaccine (1 - season) 2025 Influenza Vaccine (#1) 2025 9, 09/15/2017, 10/13/2016, [...] screening mammogram for malignant neoplasm of breast HPV Routine 03/22/2023 HEPATITIS C SCREENING Routine [...] mg/dL Blood Venous blood specimen / Unknown us Historical Provider LAB BLOOD ORDERABLES Nicole l Result * CT LUNG SCREENING LOW DOSE (12/28/2023 4:45 PM EDT) Anatomical Region Laterality Modality Computed Tomogra phy 12/28/2023 10:3 6 AM EDT Narrative 12/28/2023 4:45 PM EDT [facility] Diagnostic Imaging Department [address] [place] [address] Patient: PARRIS ISIDRO Yue /Age/Sex: 1965 - 58 - F Unit#: [id number] Location/Status: [facility] Mnemonic/Ordering Site: [facility] Ordering Physician: SINAI PARKS MD CT Lung Screening Low Dose - 12/28/23 - Report Status:Signed History: 58 year-old 40 pack-year former smoker, asymptomatic, for lung cancer screening. Quit smoking 8 years ago, emphysema Comparison: 12/21/2022 and 05/29/2019 Technique: Helical volumetric imaging of the thorax was performed, using low- dose technique, without IV contrast. DLP: 163.77 mGy/cm CTDIvol: 4.89 mGy Wanderable VCT Iterative reconstruction technique Findings: Chest: There [...] annual screening with LDCT in 12 months. [id number] Dictating Physician: WANDA LECHUGA MD Electronically Signed by: WANDA LECHUGA MD Dic Date/Time: 12/28/23 1640 Sign date/Time: 12/28/23 1645 Procedure Note Wanda Altman MD - 05/21/2024 [facility] Diagnostic Imaging Department [address] [place] [id number] Patient: PARRIS ISIDRO Yue SilvaB./Age/Sex: 1965 - 58 - F Unit#: [id number] Location/Status: [facility]/REG CLI Mnemonic/[facility] Ordering Physician: SINAI PARKS MD CT Lung Screening Low Dose - 12/28/23 - Report Status:Signed History: 58 year-old 40 pack-year former smoker, asymptomatic, for lungcancer screening. Quit smoking 8 years ago, emphysema Comparison: 12/21/2022 and 05/29/2019 Technique: Helical volumetric imaging of the thorax was performed, usinglow- dose technique, without IV contrast. DLP: 163.77 mGy/cm CTDIvol: 4.89 mGy Wanderable VCT Iterative reconstruction technique Findings: Chest: There [...] Continue annual screeningwith LDCT in 12 months. [id number] [id number] Dictating Physician: WANDA LECHUGA MD Electronically Signed by: WANDA LECHUGA MD Dic Date/Time: 12/28/23 1640 Sign date/Time: 12/28/23 1645 us Sinai Parks MD IMG CT PROCEDURES Final Result [...] % Breast cancer risk category Low (<15%) Result [facility] Jessenia Cox DO IMG XR PROCEDURES Final Resul t * Cervical Cancer Screening: HPV (03/22/2023) [facility] Cervical Cancer Screening: HPV Positive, Abstracted Result [facility] Provider HEALTH MAINTENANCE Final Result * HIV Screening (05/18/2018) [facility] HIV Screening Abstracted Result [facility] Provider HEALTH MAINTENANCE Final Result * Hepatitis C Screening (05/18/2018) [facility] Hepatitis C Screening Abstracted Result [facility] Provider HEALTH MAINTENANCE Final Result from Last 3 Months or Most Recently Relevant to Health Maintenance Insurance [employer] MED[employer]AGE on file MEDICARE Care Teams Key Cutter Relationship Specialty Start Date End Date Devang Rhodes MD [address] [place] [id number] PCP - General Internal Medicine 09/15/16
== END 2025-06-11 12:14 | disposition home or self-care (01) ==
LOC: HO.HSM 11:59
PROVIDERS: PCP Internal Medicine; Visit Provider Psychiatry & Neurology Neurology
DX: G62.9 Polyneuropathy, unspecified (principal)
CPT/HCPCS: 99214

== ENCOUNTER → 2025-06-11 11:58 | Outpatient (BNVA) | payer MEDICARE, SELFPAY | PROVIDERS: PCP Internal Medicine; Visit Provider Psychiatry & Neurology Neurology | DX: G62.9 Polyneuropathy, unspecified (principal) | CPT/HCPCS: 99212 ==